=== PATIENT | female | born 1940 | race Hispanic/Latino ===

== ENCOUNTER → 2019-03-07 | Outpatient (CLI) | payer OTHER | END | disposition home or self-care (01) | LOC: RAH 12:20 | PROVIDERS: ATTEND Internal Medicine | DX: G31.9 Degenerative disease of nervous system, unspecified (principal); G45.9 Transient cerebral ischemic attack, unspecified | CPT/HCPCS: 70450 ==

== ENCOUNTER → 2019-03-22 | Outpatient (CLI) | payer OTHER | END | disposition home or self-care (01) | LOC: SHCH 10:11 | PROVIDERS: ATTEND Internal Medicine Cardiovascular Disease | DX: I08.8 Other rheumatic multiple valve diseases (principal); I65.23 Occlusion and stenosis of bilateral carotid arteries; Z95.1 Presence of aortocoronary bypass graft | CPT/HCPCS: 93306; 93880 ==